=== PATIENT | female | born 1955 | race African-American/Black ===

== ENCOUNTER → 2024-04-30 | Outpatient (CLI) | payer BC, SELFPAY ==
--- NOTE | 2024-04-30 11:10 | VDLE_ITS ---
Reason For Study Reason For Study: Rt Knee Pain RIGHT LEFT GSV is normal. CFV is compressible, spontaneous, phasic, competent, CFV is compressible, spontaneous, phasic, competent and demonstrates normal augmentation. and demonstrates normal augmentation. FV is compressible, spontaneous, phasic, competent and demonstrates normal augmentation. POP V is compressible, spontaneous, phasic, competent and demonstrates normal augmentation. T/P Trunk is compressible. PTV is compressible. RT PerV is compressible. Procedure This is a venous duplex using B-mode, color flow and spectral Doppler. Exam performed in department. A preliminary report was called and/or faxed to Marleny Nava NP. VL/Venous Duplex US, Unilateral Interpretation Summary Deep veins of the right lower extremity are patent and compressible segmentally . There is no evidence of right lower extremity deep vein thrombosis. Valvular competence appears intact within the p roximal deep venous system on the right . The right great saphenous vein appears patent and compressible segmentally. The left common femoral vein is patent and compressible . Ordering Physician: Marleny Nava Referring Physician: Emma Valdez Performed By: Ana Galloway, RDCS, RVT
== END | disposition home or self-care (01) ==
LOC: CVS 11:09
PROVIDERS: PCP Nurse Practitioner Family
DX: M25.561 Pain in right knee (principal); M71.21 Synovial cyst of popliteal space [Baker], right knee
CPT/HCPCS: 93971

== ENCOUNTER → 2024-05-31 | Outpatient (CLI) | payer BC, SELFPAY ==
[2024-05-31 12:46] LABS: Absolute Lymphocyte Count 2.19 X10^3/uL (0.83-4.51); Absolute Neutrophil Count 6.3 X10^3/uL (2.0-7.7); Basophil# 0.05 X10^3/uL; Basophil% 0.5 % (0-1); Eosinophils% 1.1 % (0-5); Hematocrit 36.3 % (37-47); Hemoglobin 11.9 g/dL (12.0-15.0); Lymphocyte # 2.19 X10^3/ul (0.83-4.51); Lymphocyte % 23.5 % (19-41); Mean Corp Hgb Conc 32.8 g/dL (32-36); Mean Corpuscular Hgb 26.6 pg (27.0-32.0); Mean Platelet Vol. 9.6 fl (6.2-12.0); Monocyte# 0.63 X10^3/uL; Monocyte% 6.8 % (0-10); NRBC Flagged by Analyzer 0 % (0-5); Neutrophil # 6.34 X10^3/uL (2.7-7.7); Neutrophil % 67.9 % (47-70); Platelet Count 285 K/mm3 (150-450); RBC Distribution Width CV 12.9 % (11.6-14.6); RBC Distribution Width SD 37.7 fl (35.1-43.9); Red Blood Count 4.48 M/mm3 (4.2-5.4); White Blood Count 9.3 K/mm3 (4.4-11.0)
[2024-05-31 13:39] LABS: ALB/GLOB Ratio 1.2 RATIO (0.9-2.4); AST(SGOT) 21 U/L (<=31); Alanine Aminotransfer ALT/SGPT 10 U/L (<=34); Albumin, Serum 4.4 g/dL (3.4-4.8); Alkaline Phosphatase 121 U/L (35-104); Anion Gap 14 (5-15); BUN 8 mg/dL (4-19); BUN/Creat Ratio 11.9 RATIO (10-20); Calcium,Total 10.1 mg/dL (7.6-11.0); Carbon Dioxide 21.9 mmol/L (21.0-32.0); Chloride 101 mmol/L (98-108); Cholesterol 252 mg/dL (<=200); EST Glomerular Filtration Rate 94 (>60); Globulin 3.7 g/dL (2.2-4.2); Glucose 104 mg/dL (70-99); High Density Lipoprotein 67 mg/dL; Low Density Lipoprotein Calc. 159 mg/dL; Potassium 3.9 mmol/L (3.3-5.1); Protein, Total 8.1 g/dL (5.9-8.4); Sodium Level 137 mmol/L (133-145); Total Bilirubin 0.35 mg/dL (0.00-1.30); Triglycerides 129 mg/dL; Very Low Density Lipoprotein 26 mg/dL (5-40); cholesterol:hdl ratio screen 3.74
== END | disposition home or self-care (01) ==
LOC: VSLAB 08:45
PROVIDERS: PCP Nurse Practitioner Family; Visit Provider Nurse Practitioner Family
DX: I10 Essential (primary) hypertension (principal)
CPT/HCPCS: 36415; 80053; 80061; 84443; 85025

== ENCOUNTER → 2024-06-30 | Outpatient (CLI) | payer BC, SELFPAY ==
[2024-07-06 09:57] LABS: HPV Reflexed? YES, CHARGE PATIENT
== END | disposition home or self-care (01) ==
LOC: LABSPEC 12:12
PROVIDERS: PCP Nurse Practitioner Family; Visit Provider Nurse Practitioner Family
DX: Z01.419 Encounter for gynecological examination (general) (routine) without abnormal findings (principal)
CPT/HCPCS: 87624; 88175; G0145